=== PATIENT | male | born 1970 | race Hispanic/Latino ===

== ENCOUNTER 2016-07-31 17:20 | Emergency (ER) | payer SELFPAY ==
[2016-07-31 17:21] VITALS: BMI 25.0
[2016-07-31 17:35] VITALS: TEMP 97.7; O2SAT 100
--- NOTE | 2016-07-31 17:53 | ED PDOC ---
Arrival/HPI - General Chief Complaint: Trauma Time Seen by Provider: 07/31/16 17:31 Historian: Patient - History of Present Illness Narrative History of Present Illness (Text): 07/31/16 17:44 A 46 year old male presents to the emergency room status post a mechanical trip/ fall prior to arrival. Patient reports head and neck pain. Contrary to triage report, patient denies numbness. Patient notes parasthesia to bilateral hands. Patient denies dizziness, chest pain, shortness of breath, nausea, vomiting, diarrhea, or any other complaints. Time/Duration: Prior to Arrival Symptom Onset: Sudden Symptom Course: Unchanged Activities at Onset: Light Context: Walking, Street Past Medical History - Provider Review Nursing Documentation Reviewed: Yes - Past History Past History: No Previous - Infectious Disease Hx of Infectious Diseases: None - Tetanus Immunization Tetanus Immunization: Up to Date - Past Medical History Past Medical History: No Previous - Cardiac Hx Cardiac Disorders: No - Pulmonary Hx Respiratory Disorders: No - Neurological Hx Neurological Disorder: No - HEENT Hx HEENT Disorder: No - Renal Hx Renal Disorder: No - Endocrine/Metabolic Hx Endocrine Disorders: No - Hematological/Oncological Hx Blood Disorders: No - Integumentary Hx Dermatological Disorder: No - Musculoskeletal/Rheumatological Hx Musculoskeletal Disorders: No - Gastrointestinal Hx Gastrointestinal Disorders: Yes Other/Comment: GI parasites - Genitourinary/Gynecological Hx Genitourinary Disorders: No - Psychiatric Hx Depression: No Hx Substance Use: No - Past Surgical History Past Surgical History: No Previous - Surgical History Other/Comment: testicular - Anesthesia Hx Anesthesia: Yes Hx Anesthesia Reactions: No Hx Malignant Hyperthermia: No - Suicidal Assessment Feels Threatened In Home Enviroment: No Family/Social History - Physician Review Nursing Documentation Reviewed: Yes Family/Social History: No Known Family HX Smoking Status: Light Smoker < 10 Cigarettes Daily Hx Alcohol Use: Yes Hx Substance Use: No Hx Substance Use Treatment: No Allergies/Home Meds Allergies/Adverse Reactions: Allergies No Known Allergies Allergy (Verified 07/31/16 17:35) Physical Exam - Physical Exam Narrative Physical Exam (Text): 07/31/16 17:53 - Review of Systems Constitutional: Normal. absent: Fatigue, Weight Change, Fevers Eyes: Normal ENT: Normal Respiratory: Normal absent: SOB, Cough, Sputum Cardiovascular: Normal absent: Chest pain, Palpitations, Syncope Gastrointestinal: Normal absent: Abdominal pain, Diarrhea, Nausea, Vomiting Genitourinary: Normal. absent: Dysuria, Frequency, Hematuria Musculoskeletal: Head and Neck Pain absent: Arthralgias, Back Pain Skin: Normal Neurological: Parasthesia of the bilateral hands absent: Focal Weakness Endocrine: Normal Hemo/Lymphatic: Normal Psychiatric: Normal - Physical exam Patient appears age appropriate, speaking full sentences without difficulty Head atraumatic. No nasal bone deformity or tenderness, no facial or jaw pain/ swelling. No neck midline tenderness, thoracic and lumbar spine with no midline tenderness. Pt moving b/l upper and lower extremities without difficulty, 5/5 strength, with full active and passive ROM. Distal neurovasc fully intact. Abd soft/nt/ng, no hematomas, no peritoneal signs. Neg. pelvic rock. - Systems Exam Head: Present: Atraumatic, Normocephalic Pupils: Present: PERRL Extraocular Muscles: Present: EOMI Conjunctiva: Present: Normal Mouth: Present: Moist Mucous Membranes Neck: Present: Normal Range of Motion. No: MIDLINE TENDERNESS, Paraspinal Tenderness Respiratory/Chest: Present: Clear to Auscultation, Good Air Exchange. No: Respiratory Distress, Accessory Muscle Use, Tachypneic Cardiovascular: Present: Regular Rate and Rhythm, Normal S1, S2, Peripheral Pulses Present. No: Murmurs Abdomen: Present: Normal Bowel Sounds, No: Tenderness, Peritoneal Signs, Rebound, Guarding, Distention Back: Present: Normal Inspection. No: Midline Tenderness, Paraspinal Tenderness Upper Extremity: Present: Normal Inspection. No: Cyanosis, Edema Lower Extremity: Present: Normal Inspection. No: Edema Neurological: Present: GCS=15, Speech Normal, cranial nerves II through XII fully intact with no cerebellar abnormality, neuro-sensory fully intact. No focal neurological deficits. Skin: Present: Warm, Dry, Normal Color. No: Rashes Lymphatic: Present: OX3, NI, NC Psychiatric: Present: Alert, Oriented x 3, Normal Insight, Normal Concentration Vital Signs Reviewed: Yes Vital Signs Temp Pulse Resp BP Pulse Ox 07/31/16 17:21 97.7 F 85 20 174/97 H 100 Temperature: Afebrile Blood Pressure: Hypertensive Pulse: Regular Respiratory Rate: Normal Appearance: Positive for: Well-Appearing, Non-Toxic, Comfortable Pain Distress: None Mental Status: Positive for: Alert and Oriented X 3 Medical Decision Making ED Course and Treatment: 07/31/16 17:54 Impression: A 46 year old male with head and neck pain status post a mechanical fall. States that he tripped and fell on a curb. No acute findings on examination. Patient is complaining of bilateral upper extremity paresthesias, but he has no focal neurological deficits on examination, and has full neurosensory intact to his upper and lower extremities. Differential Diagnosis included but are not limited to: Sprain versus strain Plan: -- Cervical Spine CT -- Head CT -- Reassess and disposition Progress Notes: 07/31/16 19:50 CT Scan CERVICAL SPINE W/O CONTRAST Exam Date: 07/31/16 This imaging exam was performed at [facility] EXAM: CT Cervical Spine Without Intravenous Contrast CLINICAL HISTORY: 46 years old, male; Injury or trauma; Fall; Initial encounter; Blunt trauma EXAM DATE/TIME: 07/31/2016 5:46 PM COMPARISON: No relevant prior studies available. FINDINGS: VERTEBRAE: No acute cervical spine fractures visualized. No evidence of significant vertebral subluxation. Normal alignment of C1 and C2 and of the facet joints. DISCS/SPINAL CANAL/NEURAL FORAMINA: Mild to moderate multilevel degenerative disc disease, greatest at the C3-4 level. Mild, multilevel facet joint degenerative changes. SOFT TISSUES: No acute abnormality of the visualized soft tissues is seen. LUNG APICES: Mild emphysematous changes in the lung apices. No pneumothorax is seen. IMPRESSION: - No acute cervical spine fractures identified. - See above for remaining findings. Dictated By: Geno Bailon MD EXAM DATE/TIME: 07/31/2016 5:42 PM COMPARISON: No relevant prior studies available. FINDINGS: LIMITATIONS: Exam is limited by mild to moderate streak/motion artifact. BRAIN: Diffuse, mild, age-related cortical atrophy and ventriculomegaly. No significant acute abnormality identified. No acute hemorrhage seen within the brain. No acute extra-axial fluid collections visualized. No evidence of significant mass effect within the brain. VENTRICLES: See above. BONES/JOINTS: No acute fractures or other acute bony abnormality noted. SOFT TISSUES: No acute abnormality of the visualized soft tissues is seen. SINUSES: Visualized paranasal sinuses appear clear. MASTOID AIR CELLS: Mastoid air cells appear clear. IMPRESSION: - No evidence of acute intracranial injury or fractures, allowing for motion artifact. - See above for remaining findings. Dictated By: Geno Bailon MD 07/31/16 20:12 Patient ambulating around the emergency department in no distress. States that he feels comfortable being discharged home with outpatient follow-up. Patient has been informed of his CAT scan findings and instructed to follow up with the primary physician for further workup. Patient has no paresthesias, no numbness, no neurological deficits or complaints on discharge. Pt states he understands to return to the ER right away for new or worsening symptoms or for inability to f/u with PMD or specialist as instructed. Patient states that he fully agrees with and understands discharge instructions. States that he agrees with the plan and disposition. Verbalized and repeated discharge instructions and plan. I have given the patient opportunity to ask any additional questions. 07/31/16 20:32 before leaving, pt asked for a shot for pain - RAD Interpretation Radiology Orders: 07/31/16 17:42 HEAD W/O CONTRAST [CT] Stat 07/31/16 17:46 CERVICAL SPINE W/O CONTRAST [CT] Stat - Medication Orders Current Medication Orders: Discontinued Medications Acetaminophen (Tylenol 325mg Tab) 975 mg PO STAT STA Stop: 07/31/16 19:27 Last Admin: 07/31/16 19:40 Dose: 975 mg - Scribe Statement The provider has reviewed the documentation as recorded by the Chris Murrell Provider Scribe Attestation: All medical record entries made by the Angelibjayla were at my direction and personally dictated by me. I have reviewed the chart and agree that the record accurately reflects my personal performance of the history, physical exam, medical decision making, and the department course for this patient. I have also personally directed, reviewed, and agree with the discharge instructions and disposition. Disposition/Present on Arrival - Present on Arrival Any Indicators Present on Arrival: No History of DVT/PE: No History of Uncontrolled Diabetes: No Urinary Catheter: No History of Decub. Ulcer: No History Surgical Site Infection Following: None - Disposition Have Diagnosis and Disposition been Completed?: Yes Diagnosis: Fall Disposition: HOME/ ROUTINE Disposition Time: 20:13 Patient Plan: Discharge Patient Problems: Current Active Problems Problem Status Onset Fall Acute Condition: GOOD Discharge Instructions (ExitCare): Cervical Strain (GEN), Fall Prevention (ED) , Head Injury (ED) Additional Instructions: PLEASE RETURN TO THE EMERGENCY DEPARTMENT FOR NEW OR WORSENING SYMPTOMS. RETURN RIGHT AWAY IF YOU CANNOT FOLLOW UP WITH YOUR PRIMARY CARE DOCTOR, CLINIC, OR SPECIALIST IN 1-2 DAYS. Prescriptions: Ibuprofen [Motrin] 600 mg PO Q8 PRN #12 tab PRN Reason: Pain, Moderate (4-7) Referrals: Naatliia Mercer MD [Staff Provider] - Follow up with primary Hawk Donovan DO [Staff Provider] - Follow up with primary
--- NOTE | 2016-07-31 19:25 | CT ---
EXAM: CT Cervical Spine Without Intravenous Contrast CLINICAL HISTORY: 46 years old, male; Injury or trauma; Fall; Initial encounter; Blunt trauma TECHNIQUE: Axial computed tomography images of the cervical spine without intravenous contrast. This CT exam was performed using one or more of the following dose reduction techniques: automated exposure control, adjustment of the mA and/or kV according to patient size, and/or use of iterative reconstruction technique. Coronal and sagittal reformatted images were created and reviewed. EXAM DATE/TIME: 07/31/2016 5:46 PM COMPARISON: No relevant prior studies available. FINDINGS: VERTEBRAE: No acute cervical spine fractures visualized. No evidence of significant vertebral subluxation. Normal alignment of C1 and C2 and of the facet joints. DISCS/SPINAL CANAL/NEURAL FORAMINA: Mild to moderate multilevel degenerative disc disease, greatest at the C3-4 level. Mild, multilevel facet joint degenerative changes. SOFT TISSUES: No acute abnormality of the visualized soft tissues is seen. LUNG APICES: Mild emphysematous changes in the lung apices. No pneumothorax is seen. IMPRESSION: - No acute cervical spine fractures identified. - See above for remaining findings.
--- NOTE | 2016-07-31 19:34 | CT ---
EXAM: CT Head Without Intravenous Contrast CLINICAL HISTORY: 46 years old, male; Injury or trauma; Fall; Initial encounter; Blunt trauma (contusions or hematomas); Consciousness not specified TECHNIQUE: Axial computed tomography images of the head/brain without intravenous contrast. This CT exam was performed using one or more of the following dose reduction techniques: automated exposure control, adjustment of the mA and/or kV according to patient size, and/or use of iterative reconstruction technique. EXAM DATE/TIME: 07/31/2016 5:42 PM COMPARISON: No relevant prior studies available. FINDINGS: LIMITATIONS: Exam is limited by mild to moderate streak/motion artifact. BRAIN: Diffuse, mild, age-related cortical atrophy and ventriculomegaly. No significant acute abnormality identified. No acute hemorrhage seen within the brain. No acute extra-axial fluid collections visualized. No evidence of significant mass effect within the brain. VENTRICLES: See above. BONES/JOINTS: No acute fractures or other acute bony abnormality noted. SOFT TISSUES: No acute abnormality of the visualized soft tissues is seen. SINUSES: Visualized paranasal sinuses appear clear. MASTOID AIR CELLS: Mastoid air cells appear clear. IMPRESSION: - No evidence of acute intracranial injury or fractures, allowing for motion artifact. - See above for remaining findings.
[2016-07-31 22:34] VITALS: BP 162/80; PULSE 82; RESP 16
== END 2016-07-31 20:29 | disposition home or self-care (01) ==
LOC: ED 17:20
DX: Z04.8 Encounter for examination and observation for other specified reasons (principal); W01.0XXA Fall on same level from slipping, tripping and stumbling without subsequent striking against object, initial encounter; Y93.01 Activity, walking, marching and hiking; Y92.410 Unspecified street and highway as the place of occurrence of the external cause
CPT/HCPCS: 70450; 72125; 96372; 99285; J1885

== ENCOUNTER 2016-08-01 13:59 | Emergency (ER) | payer SELFPAY ==
[2016-08-01 14:12] VITALS: RESP 18
[2016-08-01 14:15] VITALS: BMI 23.6
[2016-08-01 14:16] VITALS: TEMP 98.7
--- NOTE | 2016-08-01 14:57 | ED PDOC ---
Arrival/HPI - General Chief Complaint: Back Pain Time Seen by Provider: 08/01/16 14:12 Historian: Patient - History of Present Illness Narrative History of Present Illness (Text): 08/01/16 14:41 Figueroa Piedra is a 46 year old male who presents to the emergency department with neck pain and tingling/numbness to all extremities today. 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 Only mildly in his toes. Patient was seen in the emergency department yesterday for the same symptoms after sustaining an injury where he fell forward, possibly hitting his head but patient is not sure. Patient denies any fever, chills, chest pain, shortness of breath, nausea, vomiting, diarrhea, urinary symptoms, back pain, dizziness, or any other complaints. PMD: None Time/Duration: < week (1-2 days) Symptom Onset: Gradual Symptom Course: Unchanged Activities at Onset: Light Context: Slipped Past Medical History - Provider Review Nursing Documentation Reviewed: Yes - Past History Past History: No Previous - Infectious Disease Hx of Infectious Diseases: None - Tetanus Immunization Tetanus Immunization: Up to Date - Past Medical History Past Medical History: No Previous - Cardiac Hx Cardiac Disorders: No - Pulmonary Hx Respiratory Disorders: No - Neurological Hx Neurological Disorder: No - HEENT Hx HEENT Disorder: No - Renal Hx Renal Disorder: No - Endocrine/Metabolic Hx Endocrine Disorders: No - Hematological/Oncological Hx Blood Disorders: No - Integumentary Hx Dermatological Disorder: No - Musculoskeletal/Rheumatological Hx Musculoskeletal Disorders: No - Gastrointestinal Hx Gastrointestinal Disorders: Yes Other/Comment: GI parasites - Genitourinary/Gynecological Hx Genitourinary Disorders: No - Psychiatric Hx Depression: No Hx Substance Use: No - Past Surgical History Past Surgical History: No Previous - Surgical History Other/Comment: testicular - Anesthesia Hx Anesthesia: Yes Hx Anesthesia Reactions: No Hx Malignant Hyperthermia: No - Suicidal Assessment Feels Threatened In Home Enviroment: No Family/Social History - Physician Review Nursing Documentation Reviewed: Yes Family/Social History: No Known Family HX Smoking Status: Heavy Smoker > 10 Cigarettes Daily Hx Alcohol Use: Yes Frequency of alcohol use: Socially Hx Substance Use: No Hx Substance Use Treatment: No Allergies/Home Meds Allergies/Adverse Reactions: Allergies No Known Allergies Allergy (Verified 07/31/16 17:35) Review of Systems - Physician Review All systems were reviewed & negative as marked: Yes - Review of Systems Constitutional: Normal. absent: Fevers Eyes: Normal. absent: Vision Changes, Photophobia, Eye Pain ENT: Normal. absent: Hearing Changes Respiratory: Normal. absent: SOB, Cough Cardiovascular: Normal. absent: Chest Pain Gastrointestinal: Normal. absent: Abdominal Pain, Diarrhea, Nausea, Vomiting Genitourinary Male: Normal Musculoskeletal: Neck Pain, Other (Tingling/Numbness to all extremities). absent: Back Pain Skin: Normal Neurological: Headache. absent: Dizziness Endocrine: Normal Hemo/Lymphatic: Normal Psychiatric: Normal Physical Exam Vital Signs Reviewed: Yes Vital Signs Temp Pulse Resp BP Pulse Ox 08/01/16 14:15 98.7 F 86 18 154/84 H 99 08/01/16 14:11 98.2 F 94 H 18 158/64 H 99 Temperature: Afebrile Blood Pressure: Hypertensive Pulse: Tachycardic Respiratory Rate: Normal Appearance: Positive for: Well-Appearing, Non-Toxic, Comfortable Pain Distress: None Mental Status: Positive for: Alert and Oriented X 3 - Systems Exam Head: Present: Atraumatic, Normocephalic Pupils: Present: PERRL Extroacular Muscles: Present: EOMI Conjunctiva: Present: Normal Mouth: Present: Moist Mucous Membranes Nose (External): Present: Atraumatic Nose (Internal): Present: Normal Inspection Neck: Present: Normal Range of Motion, MIDLINE TENDERNESS (tenderness at the base of occiput midline and tender around the dermatome up to his ears b/l). No : Paraspinal Tenderness Respiratory/Chest: Present: Clear to Auscultation, Good Air Exchange. No: Respiratory Distress Cardiovascular: Present: Regular Rate and Rhythm, Normal S1, S2 Abdomen: Present: Normal Bowel Sounds. No: Tenderness, Distention Upper Extremity: Present: Normal Inspection, Normal ROM, NORMAL PULSES. No: Cyanosis, Edema, Tenderness, Swelling Lower Extremity: Present: Normal Inspection, NORMAL PULSES, Normal ROM. No: Tenderness, Swelling Neurological: Present: GCS=15, CN II-XII Intact, Speech Normal, Motor Func Grossly Intact, Normal Sensory Function, Norm Deep Tendon Reflexes, Gait Normal , Memory Normal, Other (Not a good finger to nose exam b/l) Skin: Present: Warm Psychiatric: Present: Alert, Oriented x 3, Normal Insight, Normal Concentration Medical Decision Making ED Course and Treatment: 08/01/16 14:41 Impression: 46 year old male who presents complaining of numbness/tingling to the extremities and neck after a fall. Differential Diagnosis include but are not limited to: Neck pain r/o disk herniation vs. neck strain radiculopathy secondary to injury. Plan: -- Spinal Canal Cervical MRI -- Labs -- Toradol -- Reassess and disposition Prior Visits: Notes and results from previous visits were reviewed. Patient was last seen in the emergency department on 07/31/16 for the same symtpoms patient presents for today. Cervical Spine CT showed no acute cervical spine fractures identified. Head CT showed no evidence of acute intracranial injury or fractures, allowing for motion artifact. Progress Notes: 08/01/16 19:07 Case discussed with Radiologist Dr. Galloway. MRI Cervical without contrast. Impression: Multilevel degenerative spondylosis as described with varying degrees of canal narrowing cord compression and bilateral foraminal stenosis. Elliptical shaped area of increased T2 signal within the spinal cord of uncertain etiology however differential diagnosis would include acute posttraumatic edema or ischemia. Gliosis related to old trauma cannot be excluded. This lesion is not felt to represent tumor however recommend followup post-contrast Rabines is at approximately 6:50 p.m. with written down and read back verification. Neurosurgery paged and pending call back. 08/01/16 19:[address] Dalal who states to place him in a soft collar and get a flex ex imagining study. If negative for instability then he can follow up with his office this week. He should call and make an appointment. I discussed this with Dr. Heck who I signed out to f/u imaging and reevaluate. - Lab Interpretations Lab Results: 08/01/16 15:10 08/01/16 15:10 Lab Results 08/01/16 15:10: Sodium 138, Potassium 4.3, Chloride 99, Carbon Dioxide 28, Anion Gap 15, BUN 13, Creatinine 0.8, Est GFR ( Amer) > 60, Est GFR (Non- Af Amer) > 60, Random Glucose 109, Calcium 9.6 08/01/16 15:10: PT 11.4, INR 1.06, APTT 28.0 08/01/16 15:10: WBC 12.4 H D, RBC 4.64, Hgb 14.5, Hct 40.9 L, MCV 88.1, MCH 31.3 , MCHC 35.5, RDW 13.2, Plt Count 378, MPV 9.5, Gran % 78.0 H, Lymph % (Auto) 13.3 L, Mcdonald % (Auto) 8.2 H, Eos % (Auto) 0.3 L, Baso % (Auto) 0.2, Gran # 9.65 H, Lymph # 1.7, Mcdonald # 1.0 H, Eos # 0.0, Baso # 0.03 - RAD Interpretation Radiology Orders: 08/01/16 14:41 SPINAL CANAL CERVICAL W/O CONT [MRI] 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 I have reviewed the chart and agree that the record accurately reflects my personal performance of the history, physical exam, medical decision making, and the department course for this patient. I have also personally directed, reviewed, and agree with the discharge instructions and disposition. Disposition/Present on Arrival - Present on Arrival Any Indicators Present on Arrival: No History of DVT/PE: No History of Uncontrolled Diabetes: No Urinary Catheter: No History of Decub. Ulcer: No History Surgical Site Infection Following: None - Disposition Have Diagnosis and Disposition been Completed?: Yes Diagnosis: Neck pain Disposition Time: 19:16 Condition: IMPROVED
[2016-08-01 15:27] LABS: ADD MANUAL DIFF? NO
[2016-08-01 15:36] LABS: BASO # 0.03 K/mm3 (0.0-2.0); BASO % 0.2 % (0.0-3.0); EOS % 0.3 % (1.5-5.0); GRAN # 9.65 (1.4-6.5); HEMATOCRIT 40.9 % (42.0-52.0); LYMPH # 1.7 (1.2-3.4); LYMPH % 13.3 % (22.0-35.0); MEAN CELL VOLUME 88.1 fL (80.0-105.0); MEAN CORPUSCULAR HEMOGLOBIN 31.3 pg (25.0-35.0); MEAN CORPUSCULAR HGB CONC 35.5 g/dl (31.0-37.0); MEAN PLATELET VOLUME 9.5 fl (7.0-11.0); MONO % 8.2 % (1.0-6.0); PLATELET COUNT 378 10^3/uL (120.0-450.0); RED CELL DISTRIBUTION WIDTH 13.2 % (11.5-14.5); WHITE BLOOD COUNT 12.4 10^3/ul (4.5-11.0)
[2016-08-01 15:43] LABS: BLOOD UREA NITROGEN 13 mg/dL (7-21); CALCIUM 9.6 mg/dL (8.4-10.5); CARBON DIOXIDE 28 mmol/L (21-33); CHLORIDE 99 mmol/L (98-107); GFR AFRICAN-AMERICAN > 60; GLUCOSE,RANDOM 109 mg/dL (70-110); POTASSIUM 4.3 mmol/L (3.6-5.0); SODIUM 138 mmol/L (132-148)
[2016-08-01 15:44] LABS: INR 1.06 (0.93-1.08)
--- NOTE | 2016-08-01 18:52 | MRI ---
MRI of the cervical spine dated 08/01/2016. History: Status post fall. The current study reveals no acute compression fractures no retropulsed fragments. Vertebral bodies exhibit relatively normal stature aside from minor on fish-mouth endplate deformities at several levels. There is mild reversal of the normal upper cervical lordosis however vertebral bodies otherwise exhibit normal alignment. 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 At the C2-C3 level, there is mild disc desiccation and minor posterior disc space narrowing. Small central and bilateral disc bulge ridge complex indents the ventral surface of the thecal sac and cord. Central canal is mildly narrowed. The facets do appear slightly overgrown. Exit foramina appear adequate. At the C3-C4 level, there is mild disc desiccation. Disc space heights relatively maintained. Minimal broad-based bulge of the posterior annulus contiguous with the mildly overgrown facet uncovertebral joints. . Facet joints are also hypertrophic of. The there is mild canal narrowing and cord compression with bilateral foraminal stenosis. At the C4-C5 level, there is mild age related disc desiccation. Disc space height is relatively maintained. Minimal central and bilateral disc bulge ridge complex. Facets are mildly hypertrophic. Central canal is adequate. Exit foramina appear narrowed. At the C5-C6 level, there is disc desiccation. Disc space height maintained. Small central and bilateral disc bulge ridge complex contiguous with mildly overgrown uncovertebral joints. Central canal is mildly narrowed. The facet joints also hypertrophic Exit foramina are stenotic bilaterally At the C6-C7 level, there is also disc desiccation. Disc space height maintained. Small central and bilateral disc bulge indents the ventral surface of the thecal sac without significant canal stenosis or cord compression. The exit foramina appear adequate. Note is made of a elliptical shaped area of increased T2 signal within the upper cervical spinal cord extending from approximately the tip of the odontoid to mid C2 level which measures approximately 18.5 mm cc x 4.6 mm AP extending. . This lesion is of uncertain etiology though could represent posttraumatic edema, ischemia or post traumatic gliosis from a more remote injury. The cord does not appear expanded. Post-contrast MRI however is could suggested to rule out underlying tumor which is not favored but cannot be completely excluded. Note made of a small subcutaneous within the midline in just to the right of midline at the T1-T2 level which could represent sebaceous cyst. Impression: Multilevel degenerative spondylosis as described with varying degrees of canal narrowing cord compression and bilateral foraminal stenosis. Elliptical shaped area of increased T2 signal within the spinal cord of uncertain etiology however differential diagnosis would include acute posttraumatic edema or ischemia. Gliosis related to old trauma cannot be excluded. This lesion is not felt to represent tumor however recommend followup post-contrast Rabines is at approximately 6:50 p.m. with written down and read back verification.
--- NOTE | 2016-08-01 21:03 | ED PDOC ---
Physical Exam Vital Signs Temp Pulse Resp BP Pulse Ox 08/01/16 14:15 98.7 F 86 18 154/84 H 99 08/01/16 14:11 98.2 F 94 H 18 158/64 H 99 Medical Decision Making ED Course and Treatment: 08/01/16 21:01 flexion extension of neck no acute abnormality will dc per plan to follow up with neurosx outpt - Lab Interpretations Lab Results: 08/01/16 15:10 08/01/16 15:10 Lab Results 08/01/16 15:10: Sodium 138, Potassium 4.3, Chloride 99, Carbon Dioxide 28, Anion Gap 15, BUN 13, Creatinine 0.8, Est GFR ( Amer) > 60, Est GFR (Non- Af Amer) > 60, Random Glucose 109, Calcium 9.6 08/01/16 15:10: PT 11.4, INR 1.06, APTT 28.0 08/01/16 15:10: WBC 12.4 H D, RBC 4.64, Hgb 14.5, Hct 40.9 L, MCV 88.1, MCH 31.3 , MCHC 35.5, RDW 13.2, Plt Count 378, MPV 9.5, Gran % 78.0 H, Lymph % (Auto) 13.3 L, Leake % (Auto) 8.2 H, Eos % (Auto) 0.3 L, Baso % (Auto) 0.2, Gran # 9.65 H, Lymph # 1.7, Leake # 1.0 H, Eos # 0.0, Baso # 0.03 - RAD Interpretation Radiology Orders: 08/01/16 14:41 SPINAL CANAL CERVICAL W/O CONT [MRI] Stat 08/01/16 19:15 CERVICAL SPINE COMP W/ F&E [RAD] Stat - Medication Orders Current Medication Orders: Discontinued Medications Ketorolac Tromethamine (Toradol) 60 mg IM STAT STA Stop: 08/01/16 14:33 Last Admin: 08/01/16 15:02 Dose: 60 mg Re-Assess: MARILOU Pain Assessment Document 08/01/16 16:02 EQ (Rec: 08/01/16 20:10 EQ [facility] [id number]) Pain Reassessment Is this a pain reassessment? Yes Sleep Is patient sleeping during reassessment? No Presence of Pain Presence of Pain Yes Morphine Sulfate (Morphine) 6 mg IM STAT STA Stop: 08/01/16 18:31 Last Admin: 08/01/16 19:10 Dose: 6 mg Disposition/Present on Arrival - Present on Arrival Any Indicators Present on Arrival: No History of DVT/PE: No History of Uncontrolled Diabetes: No Urinary Catheter: No History of Decub. Ulcer: No History Surgical Site Infection Following: None - Disposition Have Diagnosis and Disposition been Completed?: Yes Diagnosis: Neck pain Disposition: HOME/ ROUTINE Disposition Time: 21:02 Condition: GOOD Discharge Instructions (ExitCare): Cervical Sprain (ED), Cervical Radiculopathy (ED) Referrals: PCP,NO [Primary Care Provider] - Follow up with primary Ruel Dalal MD [Staff Provider] - Follow up with primary
[2016-08-01] MEDS ORDERED: Sodium Chloride 0.9% 1,000 ML IV SCH (21:30)
[2016-08-01] MEDS ORDERED: Morphine 2 mg/ml ISec IVP STA (23:24)
[2016-08-02 00:01] VITALS: BP 139/83; PULSE 87; O2SAT 97
--- NOTE | 2016-08-02 10:34 | RAD ---
PROCEDURE: Cervical Spine Radiographs. Multiple views of the cervical spine including lateral neutral flexion and extension views performed. HISTORY: Pain. COMPARISON: None. FINDINGS: BONES: No acute compression fractures nor retropulsed fragments. Vertebral bodies exhibit relatively normal stature. Very slight posterior subluxation C2 over C3 through C5 over C6. . There is widening of the AP distance of the at atlantodental interval ranging between 5.47- 7.49 mm ; findings consistent with instability at the C1-C2 level. DISC SPACES: Mild the disc space narrowing more so along the posterior disc margins with endplate eburnation and anterior osteophyte formation. SOFT TISSUES: Normal. No prevertebral soft tissue swelling. OTHER FINDINGS: None. IMPRESSION: No acute fractures. Very slight posterior subluxation C2 over C3 through C5 over C6. . There is widening of the AP distance of the at atlantodental interval ranging between 4.8- 6.7 mm ; findings consistent with instability at the C1-C2 level. Neurosurgical consultation is suggested. These findings were discussed with Dr. Lee at approximately 10:30 a.m. with written down and read back verification. Mild multilevel degenerative spondylosis Note also that this report was placed in PA review folder for followup
== END 2016-08-02 | disposition home or self-care (01) ==
LOC: ED 13:59
DX: M54.2 Cervicalgia (principal)
CPT/HCPCS: 72052; 72141; 80048; 85025; 85610; 85730; 96372; 96374; 99283; J1885; J2270; J7040

== ENCOUNTER 2016-09-13 22:17 | Emergency (ER) | payer SELFPAY ==
[2016-09-13 23:13] VITALS: BMI 22.8
[2016-09-13 23:22] VITALS: BP 147/98; PULSE 85; RESP 16; TEMP 100.5; O2SAT 98
[2016-09-13] MEDS ORDERED: Morphine 4 mg/ml ISec IVP STA (23:35)
[2016-09-14] MEDS: cefTRIAXone 1 gm 1 GM/100 ML BAG IVPB STA ×2 (00:03→00:38)
[2016-09-14 00:12] LABS: HEMATOCRIT 37.8 % (42.0-52.0); MEAN CELL VOLUME 90.9 fL (80.0-105.0); MEAN CORPUSCULAR HEMOGLOBIN 31.5 pg (25.0-35.0); MEAN CORPUSCULAR HGB CONC 34.7 g/dl (31.0-37.0); MEAN PLATELET VOLUME 9.1 fl (7.0-11.0); PLATELET COUNT 350 10^3/uL (120.0-450.0); RED CELL DISTRIBUTION WIDTH 12.8 % (11.5-14.5); WHITE BLOOD COUNT 20.5 10^3/ul (4.5-11.0)
--- NOTE | 2016-09-14 00:12 | ED PDOC ---
Arrival/HPI - General Chief Complaint: Dental Pain Time Seen by Provider: 09/13/16 23:09 Historian: Patient - History of Present Illness Narrative History of Present Illness (Text): 09/14/16 00:03 46yo male with history of multiple visit to ED for dental pain, present with 2days history of worsening right sided upper and lower toothache with facial swelling. States swelling became worse today. Per patient, pain is throbbing and it "feels like my face is about to explode". He states he saw a Dentist in the past, but couldn't see a dentist now, because have no insurance. He denies fever, although he was febrile on presentation. He denies drooling, SOB, neck pain, trauma, any other complaint. Past Medical History - Provider Review Nursing Documentation Reviewed: Yes - Past History Past History: No Previous - Infectious Disease Hx of Infectious Diseases: None - Tetanus Immunization Tetanus Immunization: Up to Date - Past Medical History Past Medical History: No Previous - Cardiac Hx Cardiac Disorders: No - Pulmonary Hx Respiratory Disorders: No - Neurological Hx Neurological Disorder: No - HEENT Hx HEENT Disorder: No - Renal Hx Renal Disorder: No - Endocrine/Metabolic Hx Endocrine Disorders: No - Hematological/Oncological Hx Blood Disorders: No - Integumentary Hx Dermatological Disorder: No - Musculoskeletal/Rheumatological Hx Musculoskeletal Disorders: No - Gastrointestinal Hx Gastrointestinal Disorders: Yes Other/Comment: GI parasites - Genitourinary/Gynecological Hx Genitourinary Disorders: No - Psychiatric Hx Depression: No Hx Substance Use: No - Past Surgical History Past Surgical History: No Previous - Surgical History Other/Comment: testicular - Anesthesia Hx Anesthesia: Yes Hx Anesthesia Reactions: No Hx Malignant Hyperthermia: No - Suicidal Assessment Feels Threatened In Home Enviroment: No Family/Social History - Physician Review Nursing Documentation Reviewed: Yes Family/Social History: Unknown Family HX Smoking Status: Heavy Smoker > 10 Cigarettes Daily Hx Alcohol Use: Yes Hx Substance Use: No Hx Substance Use Treatment: No Allergies/Home Meds Allergies/Adverse Reactions: Allergies No Known Allergies Allergy (Verified 09/13/16 23:14) Review of Systems - Physician Review All systems were reviewed & negative as marked: Yes - Review of Systems Constitutional: Normal Eyes: Normal ENT: Other (DEntal pain) Respiratory: Normal Cardiovascular: Normal Gastrointestinal: Normal Genitourinary Male: Normal Musculoskeletal: Normal Skin: Normal Neurological: Normal Endocrine: Normal Hemo/Lymphatic: Normal Psychiatric: Normal Physical Exam Vital Signs Reviewed: Yes Vital Signs Temp Pulse Resp BP Pulse Ox 09/13/16 23:22 100.5 F H 85 16 147/98 H 98 Temperature: Febrile Blood Pressure: Normal Pulse: Regular Respiratory Rate: Normal Appearance: Positive for: Well-Appearing, Non-Toxic, Comfortable Pain Distress: Moderate Mental Status: Positive for: Alert and Oriented X 3 - Systems Exam Head: Present: Atraumatic, Normocephalic Pupils: Present: PERRL Extroacular Muscles: Present: EOMI Conjunctiva: Present: Normal Mouth: Present: Moist Mucous Membranes, Trismus, Other (Prominent swelling of right sided jaw noted. TTP). No: Normal Teeth (Unable to ascess , pt unable to open mouth secondary to pain) Neck: Present: Normal Range of Motion Respiratory/Chest: Present: Clear to Auscultation, Good Air Exchange. No: Respiratory Distress, Accessory Muscle Use Cardiovascular: Present: Regular Rate and Rhythm, Normal S1, S2. No: Murmurs Abdomen: Present: Normal Bowel Sounds. No: Tenderness, Distention, Peritoneal Signs Back: Present: Normal Inspection Upper Extremity: Present: Normal Inspection. No: Cyanosis, Edema Lower Extremity: Present: Normal Inspection. No: Edema Neurological: Present: GCS=15, CN II-XII Intact, Speech Normal Skin: Present: Warm, Dry, Normal Color. No: Rashes Psychiatric: Present: Alert, Oriented x 3, Normal Insight, Normal Concentration Medical Decision Making ED Course and Treatment: 09/14/16 00:[address] Alexander, LILIANA at [facility] and she accepted pt for transfer to [facility]. Pt was febrile in ED and physically in pain. He have prominent swelling of his right sided jaw. Lab was ordered Rocephin and morphine was ordered The plan to transfer pt to [facility] was DW the pt and he agreed. 09/14/16 01:22 Patient requested for more pain medication while in ED and his pain was controlled with addition of Dilaudid after morphine. He then declined transfer. States he will go and see his own Dentist. This was after he agreed to the plan of transfer even before i spoke with the OMFS at [facility]. I stressed the importance of him seeing a Dentist/OMFS secondary to his significant facial swelling, leukocytoisis and fever. The risk of sepsis and possible was DW the pt. He states he understood these risk , but still insisted on leaving AMA. - Lab Interpretations Lab Results: 09/13/16 23:55 09/13/16 23:55 Lab Results 09/13/16 23:55: Sodium 135, Potassium 3.9, Chloride 97 L, Carbon Dioxide 29, Anion Gap 13, BUN 9, Creatinine 0.8, Est GFR ( Amer) > 60, Est GFR (Non- Af Amer) > 60, Random Glucose 102, Calcium 9.5, Total Bilirubin 0.8, AST 25, ALT 27, Alkaline Phosphatase 78, Total Protein 7.7, Albumin 4.2, Globulin 3.5, Albumin/Globulin Ratio 1.2 09/13/16 23:55: WBC 20.5 H D, RBC 4.16, Hgb 13.1 L, Hct 37.8 L, MCV 90.9, MCH 31.5, MCHC 34.7, RDW 12.8, Plt Count 350, MPV 9.1, Neutrophils % (Manual) 73 H, Band Neutrophils % 3 H, Lymphocytes % (Manual) 18 L, Monocytes % (Manual) 5, Eosinophils % (Manual) 1, Platelet Evaluation Normal - Medication Orders Current Medication Orders: Discontinued Medications Hydromorphone HCl (Dilaudid) 1 mg IVP STAT STA Stop: 09/14/16 00:25 Last Admin: 09/14/16 00:38 Dose: 1 mg Ceftriaxone Sodium (Rocephin 1 Gram Ivpb) 1 gm in 100 mls @ 200 mls/hr IVPB STAT STA PRN Reason: Protocol Stop: 09/14/16 00:03 Last Admin: 09/14/16 00:38 Dose: 200 mls/hr Morphine Sulfate (Morphine) 4 mg IVP STAT STA Stop: 09/13/16 23:36 Last Admin: 09/14/16 00:02 Dose: 4 mg Disposition/Present on Arrival - Present on Arrival Any Indicators Present on Arrival: No History of DVT/PE: No History of Uncontrolled Diabetes: No Urinary Catheter: No History of Decub. Ulcer: No History Surgical Site Infection Following: None - Disposition Have Diagnosis and Disposition been Completed?: Yes Diagnosis: Dental abscess, Leukocytosis Disposition: AGAINST MEDICAL ADVICE Disposition Time: 01:15 Patient Problems: Current Active Problems Problem Status Onset Dental abscess Acute Leukocytosis Acute Condition: FAIR Prescriptions: Amoxicillin 500 mg PO TID #21 tab Ibuprofen [Motrin Tab] 800 mg PO Q6 #20 tab Referrals: PCP,NO [Primary Care Provider] - Follow up with primary
[2016-09-14 00:15] LABS: ADD MANUAL DIFF? YES
[2016-09-14] MEDS ORDERED: HYDROmorphone 1 mg/ml ISec IVP STA (00:24)
[2016-09-14 00:30] LABS: ALB/GLOB RATIO 1.2 (1.1-1.8); ALKALINE PHOSPHATASE 78 U/L (38-133); ALT/SGPT 27 U/L (7-56); AST/SGOT 25 U/L (15-59); BILIRUBIN,TOTAL 0.8 mg/dL (0.2-1.3); BLOOD UREA NITROGEN 9 mg/dL (7-21); CALCIUM 9.5 mg/dL (8.4-10.5); CARBON DIOXIDE 29 mmol/L (21-33); CHLORIDE 97 mmol/L (98-107); GFR AFRICAN-AMERICAN > 60; GLUCOSE,RANDOM 102 mg/dL (70-110); POTASSIUM 3.9 mmol/L (3.6-5.0); SODIUM 135 mmol/L (132-148); TOTAL PROTEIN 7.7 g/dL (5.8-8.3)
[2016-09-14 01:01] LABS: BAND 3 % (0-2); EOSINOPHIL 1 % (0.0-3.0); NEUTROPHIL 73 % (50.0-70.0); PLATELET ESTIMATE NORMAL (NORMAL)
== END 2016-09-14 01:15 | disposition left against medical advice (07) ==
LOC: ED 22:17
DX: K04.7 Periapical abscess without sinus (principal); D72.829 Elevated white blood cell count, unspecified
CPT/HCPCS: 80053; 85025; 96365; 96375; 99284; J0696; J1170; J2270

== ENCOUNTER 2016-11-04 10:20 | Emergency (ER) | payer MEDICAID, OTHER ==
[2016-11-04 10:20] VITALS: BMI 22.8
[2016-11-04 10:47] VITALS: TEMP 98.8
--- NOTE | 2016-11-04 10:48 | ED PDOC ---
Arrival/HPI - General Chief Complaint: Abnormal Skin Integrity Time Seen by Provider: 11/04/16 10:47 Historian: Patient - History of Present Illness Narrative History of Present Illness (Text): 11/04/16 10:48 This 46 yo male presents to this ED c/o right facial abscess, and generalized insect bites x 7 days. Patient stated abscess became larger today with pain. Denies other complains. Time/Duration: 1 week Quality: Aching Context: Home Past Medical History - Provider Review Nursing Documentation Reviewed: Yes - Past History Past History: No Previous - Infectious Disease Hx of Infectious Diseases: None - Tetanus Immunization Tetanus Immunization: Up to Date - Past Medical History Past Medical History: No Previous - Cardiac Hx Cardiac Disorders: No - Pulmonary Hx Respiratory Disorders: No - Neurological Hx Neurological Disorder: No - HEENT Hx HEENT Disorder: No - Renal Hx Renal Disorder: No - Endocrine/Metabolic Hx Endocrine Disorders: No - Hematological/Oncological Hx Blood Disorders: No - Integumentary Hx Dermatological Disorder: No - Musculoskeletal/Rheumatological Hx Musculoskeletal Disorders: No - Gastrointestinal Hx Gastrointestinal Disorders: Yes Other/Comment: GI parasites - Genitourinary/Gynecological Hx Genitourinary Disorders: No - Psychiatric Hx Depression: No Hx Substance Use: No - Past Surgical History Past Surgical History: No Previous - Surgical History Other/Comment: testicular - Anesthesia Hx Anesthesia: Yes Hx Anesthesia Reactions: No Hx Malignant Hyperthermia: No - Suicidal Assessment Feels Threatened In Home Enviroment: No Family/Social History - Physician Review Nursing Documentation Reviewed: Yes Family/Social History: No Known Family HX Smoking Status: Heavy Smoker > 10 Cigarettes Daily Hx Alcohol Use: Yes Frequency of alcohol use: Socially Hx Substance Use: No Hx Substance Use Treatment: No Allergies/Home Meds Allergies/Adverse Reactions: Allergies No Known Allergies Allergy (Verified 11/04/16 10:29) Review of Systems - Review of Systems Constitutional: Normal. absent: Fatigue, Weight Change, Fevers, Night Sweats Eyes: Normal ENT: Normal Respiratory: Normal. absent: SOB, Cough, Sputum, Wheezing Cardiovascular: Normal. absent: Chest Pain, Palpitations Gastrointestinal: Normal. absent: Abdominal Pain, Nausea, Vomiting Genitourinary Male: Normal Musculoskeletal: Normal Skin: Rash, Abscess. absent: Pruritis, Skin Lesions Neurological: Normal. absent: Headache Endocrine: Normal Hemo/Lymphatic: Normal Psychiatric: Normal Physical Exam Vital Signs Temp Pulse Resp BP Pulse Ox 11/04/16 12:12 79 18 132/74 98 11/04/16 11:10 87 18 134/79 97 11/04/16 10:25 98.8 F 92 H 16 136/88 98 Temperature: Afebrile Blood Pressure: Normal Pulse: Regular Respiratory Rate: Normal Appearance: Positive for: Well-Appearing, Non-Toxic, Comfortable Pain Distress: None Mental Status: Positive for: Alert and Oriented X 3 - Systems Exam Head: Present: Atraumatic, Normocephalic, Other ((+) right facial abscess, approx. 3 cm. (+) multiple insect like wounds on his extremites, and 2 on the scalp.) Pupils: Present: PERRL Extroacular Muscles: Present: EOMI Conjunctiva: Present: Normal Mouth: Present: Moist Mucous Membranes Neck: Present: Normal Range of Motion. No: Meningeal Signs Respiratory/Chest: Present: Clear to Auscultation, Good Air Exchange. No: Respiratory Distress, Accessory Muscle Use Cardiovascular: Present: Regular Rate and Rhythm, Normal S1, S2. No: Murmurs Abdomen: Present: Normal Bowel Sounds. No: Tenderness, Distention, Peritoneal Signs Back: Present: Normal Inspection. No: CVA Tenderness Upper Extremity: Present: Normal Inspection, Normal ROM. No: Cyanosis, Edema Lower Extremity: Present: Normal Inspection, Normal ROM, Capillary Refill < 2 s. No: Edema Neurological: Present: GCS=15, CN II-XII Intact, Speech Normal Skin: Present: Warm, Dry, Normal Color. No: Rashes Psychiatric: Present: Alert, Oriented x 3 Medical Decision Making ED Course and Treatment: 11/04/16 12:45 Th Re-evaluation Time: 12:46 Reassessment Condition: Re-examined - Medication Orders Current Medication Orders: Discontinued Medications Amoxicillin/Clavulanate Potassium (Augmentin 875 Mg-125 Mg Tab) 1 tab PO STAT STA PRN Reason: Protocol Stop: 11/04/16 11:18 Last Admin: 11/04/16 11:31 Dose: 1 tab Ketorolac Tromethamine (Toradol) 30 mg IM STAT STA Stop: 11/04/16 11:03 Last Admin: 11/04/16 11:04 Dose: 30 mg Ketorolac Tromethamine (Toradol) Confirm Administered Dose 30 mg .ROUTE .STK- MED ONE Stop: 11/04/16 11:04 Last Admin: 11/04/16 11:05 Dose: Trimethoprim/Sulfamethoxazole (Bactrim Ds Tab) 1 tab PO STAT STA PRN Reason: Protocol Stop: 11/04/16 11:18 Last Admin: 11/04/16 11:31 Dose: 1 tab Disposition/Present on Arrival - Present on Arrival Any Indicators Present on Arrival: No History of DVT/PE: No History of Uncontrolled Diabetes: No Urinary Catheter: No History of Decub. Ulcer: No History Surgical Site Infection Following: None - Disposition Have Diagnosis and Disposition been Completed?: Yes Diagnosis: Facial abscess Disposition: HOME/ ROUTINE Disposition Time: 12:46 Patient Plan: Discharge Condition: GOOD Discharge Instructions (ExitCare): Abscess (ED) Additional Instructions: Keep wound clean and dry for 2 days. Return to emergency in 2 days for wound recheck. Take medication as instructed. Apply cream of the head twice a day for 1-2 weeks Prescriptions: Amoxicillin/Clavulanate [Augmentin 875 MG-125 MG] 1 tab PO BID #14 tab Clotrimazole 1% Cream [Lotrimin 1% CREAM] 1 applic TOP BID #1 tube Sulfamethoxazole/Trimethoprim [Bactrim DS 800 mg-160 mg] 1 tab PO BID #20 tab Referrals: PCP,NO [Primary Care Provider] - Follow up with primary [facility] [Outside] - Follow up with primary [facility] [Outside] - Follow up with primary Forms: [employer] (Lithuanian)
[2016-11-04 11:11] VITALS: RESP 18
[2016-11-04] MEDS ORDERED: Tmp-Smz 800 mg-160 mg DS Tab PO STA (11:17)
[2016-11-04] MEDS ORDERED: Amoxicillin-Clav 875-125 mg Tab PO STA (11:17)
[2016-11-04 12:12] VITALS: BP 132/74; PULSE 79; O2SAT 98
[2016-11-04] MEDS ORDERED: Clotrimazole 1% Cream(30 gm) TOP STA (12:43)
== END 2016-11-04 13:11 | disposition home or self-care (01) ==
LOC: ED 10:20
DX: L02.01 Cutaneous abscess of face (principal)
CPT/HCPCS: 87070; 96372; 99284; J1885

== ENCOUNTER 2017-07-19 04:18 | Emergency (ER) | payer MEDICAID ==
[2017-07-19 04:29] VITALS: BMI 25.0
[2017-07-19 04:37] VITALS: BP 192/110; PULSE 91; RESP 18; TEMP 98; O2SAT 98
[2017-07-19] MEDS ORDERED: Bacitracin 500 Units/gm Oint Foilpak UD TOP STA (04:41)
--- NOTE | 2017-07-19 04:47 | ED PDOC ---
Arrival/HPI - General Chief Complaint: Abnormal Skin Integrity Time Seen by Provider: 07/19/17 04:34 Historian: Patient - History of Present Illness Narrative History of Present Illness (Text): you were treated in the ED today for scalp itching and now with left scalp wound and long standing right shoulder and neck pain from lifting weights but otherwise without any /fall/injury/head injury/nausea/vomiting/headache/ dizziness/difficulty breathing/chest pain/abdomen pain/numbness/tingling/loss of limb or bowel or bladder function/pain with urination/new foods/travel/new detergents. Time/Duration: > month (1) Symptom Onset: Gradual Symptom Course: Intermittent Quality: Aching Severity Level: 1 Activities at Onset: Rest Context: Sitting Past Medical History - Provider Review Nursing Documentation Reviewed: Yes - Travel History Have you recently traveled outside [place] w/in the past 3 mons?: No - Past History Past History: No Previous - Infectious Disease Hx of Infectious Diseases: None - Tetanus Immunization Tetanus Immunization: Up to Date - Past Medical History Past Medical History: No Previous - Cardiac Hx Cardiac Disorders: No - Pulmonary Hx Respiratory Disorders: No - Neurological Hx Neurological Disorder: No - HEENT Hx HEENT Disorder: No - Renal Hx Renal Disorder: No - Endocrine/Metabolic Hx Endocrine Disorders: No - Hematological/Oncological Hx Blood Disorders: No - Integumentary Hx Dermatological Disorder: No - Musculoskeletal/Rheumatological Hx Musculoskeletal Disorders: No - Gastrointestinal Hx Gastrointestinal Disorders: Yes Other/Comment: GI parasites - Genitourinary/Gynecological Hx Genitourinary Disorders: No - Psychiatric Hx Depression: No Hx Substance Use: No - Past Surgical History Past Surgical History: No Previous - Surgical History Other/Comment: testicular - Anesthesia Hx Anesthesia: Yes Hx Anesthesia Reactions: No Hx Malignant Hyperthermia: No - Suicidal Assessment Feels Threatened In Home Enviroment: No Family/Social History - Physician Review Nursing Documentation Reviewed: Yes Family/Social History: No Known Family HX Smoking Status: Heavy Smoker > 10 Cigarettes Daily Hx Alcohol Use: Yes Hx Substance Use: No Hx Substance Use Treatment: No Allergies/Home Meds Allergies/Adverse Reactions: Allergies No Known Allergies Allergy (Verified 07/19/17 04:29) Review of Systems - Review of Systems Constitutional: Normal Eyes: Normal ENT: Normal Respiratory: Normal Cardiovascular: Normal Gastrointestinal: Normal Genitourinary Male: Normal Musculoskeletal: Arthralgias, Neck Pain Skin: Other (scalp wound) Neurological: Normal Endocrine: Normal Hemo/Lymphatic: Normal Psychiatric: Normal Physical Exam Vital Signs Reviewed: Yes Vital Signs Temp Pulse Resp BP Pulse Ox 07/19/17 04:37 98.0 F 91 H 18 192/110 H 98 Temperature: Afebrile Blood Pressure: Hypertensive Pulse: Regular Respiratory Rate: Normal Appearance: Positive for: Well-Appearing, Non-Toxic, Comfortable Pain Distress: None Mental Status: Positive for: Alert and Oriented X 3 - Systems Exam Head: Present: Atraumatic, Normocephalic, Other (left scalp wound with mild redness but no pocket of infection) Extroacular Muscles: Present: EOMI Conjunctiva: Present: Normal Ears: Present: Normal Mouth: Present: Moist Mucous Membranes Pharnyx: Present: Normal Nose (External): Present: Atraumatic Nose (Internal): Present: Normal Inspection Neck: Present: Normal Range of Motion, Other (no specific bony shoulder tenderness or spinal tenderness and with good pulses/warm extremities/pink) Respiratory/Chest: Present: Clear to Auscultation, Good Air Exchange Cardiovascular: Present: Regular Rate and Rhythm Abdomen: No: Tenderness, Distention, Normal Bowel Sounds, Peritoneal Signs, Rebound, Guarding, McBurney's Point Tender, Rovsing's Sign Present, Hernias, Feeding Tubes, Ostomy Tubes, Mass/Organomegaly, Scars, Other Back: Present: Normal Inspection Upper Extremity: Present: Normal Inspection Lower Extremity: Present: Normal Inspection Neurological: Present: GCS=15, CN II-XII Intact, Speech Normal, Motor Func Grossly Intact Skin: Present: Warm, Other (see heent) Psychiatric: Present: Alert, Oriented x 3, Normal Insight, Normal Concentration Medical Decision Making ED Course and Treatment: you were treated in the ED today for scalp itching and now with left scalp wound and long standing right shoulder and neck pain from lifting weights but otherwise without any /fall/injury/head injury/nausea/vomiting/headache/ dizziness/difficulty breathing/chest pain/abdomen pain/numbness/tingling/loss of limb or bowel or bladder function/pain with urination/new foods/travel/new detergents. You were otherwise breathing easily, pink moist lips, talking easily , good strength/sensation, alert/oriented, walking easily, clear lungs, no abdomen tenderness, left scalp wound with mild redness but no pocket of infection, and no specific bony shoulder tenderness or spinal tenderness and with good pulses/warm extremities/pink/good range of motion, no fever temp 98, stable heart rate 91, stable breathing rate 18, excellent oxygen level 98% room air, elevated blood pressure 192/110 which we recommend repeat in 2-3 days primary care office to determine further treatment, radiology ct cervical spine no fracture, right shoulder xray no acute, motrin, keflex, bacitracin, ointment done in the ED with improvement, counselled to allow water/soap on scalp wound daily and thus discharged home. 1. Recommend keflex as directed for wound infection treatment. recommend bacitracin ointment to wound daily. 2. Recommend motrin as directed for pain. 3. Recommend follow-up primary care 2 days to review symptoms, for wound check and for referral to spine clinic to review symptoms. 4. If any worsening pain, fever, chills, nausea, vomiting, difficulty breathing, numbness, loss of limb function, pain with urination or any medical condition then return to the ED. CT - CERVICAL SPINE W/O CONTRAST 2016-07-31 18:51 FINDINGS: Vertebrae: No acute fracture. Straightening of cervical spine. Early facet osteoarthrosis. Discs/spinal canal/neural foramina: Mild degenerative disc disease at C2-C3, C3- C4, C5-C6, C6-C7 levels. Mild indentation thecal sac/cord at C3-C4 level. Neuroforaminal narrowing at C3-C4 level. Soft tissues: Unremarkable. Lung apices: Mild bullous changes. IMPRESSION: 1. No fracture. 2. If symptoms persist, consider MRI for further evaluation. 3. Incidental/non-acute findings are described above. Reassessment Condition: Re-examined, Improved - RAD Interpretation Radiology Orders: 07/19/17 04:43 CERVICAL SPINE W/O CONTRAST [CT] Stat SHOULDER RIGHT [RAD] Stat Primary Care Physician: Radiologist (see mdm) - Medication Orders Current Medication Orders: Discontinued Medications Bacitracin (Bacitracin) 1 ea TOP STAT STA Stop: 07/19/17 04:42 Last Admin: 07/19/17 05:02 Dose: 1 ea Cephalexin Monohydrate (Keflex) 500 mg PO STAT STA PRN Reason: Protocol Stop: 07/19/17 04:43 Last Admin: 07/19/17 05:02 Dose: 500 mg Ibuprofen (Motrin Tab) 800 mg PO STAT STA Stop: 07/19/17 04:45 Last Admin: 07/19/17 05:01 Dose: 800 mg Disposition/Present on Arrival - Present on Arrival Any Indicators Present on Arrival: No History of DVT/PE: No History of Uncontrolled Diabetes: No Urinary Catheter: No History of Decub. Ulcer: No History Surgical Site Infection Following: None - Disposition Have Diagnosis and Disposition been Completed?: Yes Diagnosis: Cellulitis and abscess of head Disposition: HOME/ ROUTINE Disposition Time: 05:37 Patient Plan: Discharge Condition: IMPROVED Discharge Instructions (ExitCare): Cellulitis (ED) Additional Instructions: you were treated in the ED today for scalp itching and now with left scalp wound and long standing right shoulder and neck pain from lifting weights but otherwise without any /fall/injury/head injury/nausea/vomiting/headache/ dizziness/difficulty breathing/chest pain/abdomen pain/numbness/tingling/loss of limb or bowel or bladder function/pain with urination/new foods/travel/new detergents. You were otherwise breathing easily, pink moist lips, talking easily , good strength/sensation, alert/oriented, walking easily, clear lungs, no abdomen tenderness, left scalp wound with mild redness but no pocket of infection, and no specific bony shoulder tenderness or spinal tenderness and with good pulses/warm extremities/pink/good range of motion, no fever temp 98, stable heart rate 91, stable breathing rate 18, excellent oxygen level 98% room air, elevated blood pressure 192/110 which we recommend repeat in 2-3 days primary care office to determine further treatment, radiology ct cervical spine no fracture, right shoulder xray no acute, motrin, keflex, bacitracin, ointment done in the ED with improvement, counselled to allow water/soap on scalp wound daily and thus discharged home. 1. Recommend keflex as directed for wound infection treatment. recommend bacitracin ointment to wound daily. 2. Recommend motrin as directed for pain. 3. Recommend follow-up primary care 2 days to review symptoms, for wound check and for referral to spine clinic to review symptoms. 4. If any worsening pain, fever, chills, nausea, vomiting, difficulty breathing, numbness, loss of limb function, pain with urination or any medical condition then return to the ED. Prescriptions: Cephalexin [cephalexin] 500 mg PO Q8 7 Days #21 cap Forms: [employer] ([place])
--- NOTE | 2017-07-19 05:32 | CT ---
EXAM: CT Cervical Spine Without Intravenous Contrast CLINICAL HISTORY: 47 years old, male; Pain; Neck pain; Additional info: 47yom with radicular pain TECHNIQUE: Axial computed tomography images of the cervical spine without intravenous contrast. All CT scans at this facility use one or more dose reduction techniques, viz.: automated exposure control; ma/kV adjustment per patient size (including targeted exams where dose is matched to indication; i.e. head); or iterative reconstruction technique. Coronal and sagittal reformatted images were created and reviewed. COMPARISON: CT - CERVICAL SPINE W/O CONTRAST 2016-07-31 18:51 FINDINGS: Vertebrae: No acute fracture. Straightening of cervical spine. Early facet osteoarthrosis. Discs/spinal canal/neural foramina: Mild degenerative disc disease at C2-C3, C3-C4, C5-C6, C6-C7 levels. Mild indentation thecal sac/cord at C3-C4 level. Neuroforaminal narrowing at C3-C4 level. Soft tissues: Unremarkable. Lung apices: Mild bullous changes. IMPRESSION: 1. No fracture. 2. If symptoms persist, consider MRI for further evaluation. 3. Incidental/non-acute findings are described above.
--- NOTE | 2017-07-19 08:26 | RAD ---
PROCEDURE: Radiographs of the Right Shoulder HISTORY: 47yoM, with shoulder pain COMPARISON: No prior. FINDINGS: BONES: Bone alignment is normal. No acute fracture. JOINTS: There is mild degenerative osteoarthrosis in the glenohumeral and acromioclavicular joints. SOFT TISSUES: Normal. OTHER FINDINGS: None. IMPRESSION: No acute fracture or dislocation. Mild degenerative osteoarthrosis in the acromioclavicular and glenohumeral joints.
== END 2017-07-19 05:58 | disposition home or self-care (01) ==
LOC: ED 04:18
DX: L02.811 Cutaneous abscess of head [any part, except face] (principal); L03.811 Cellulitis of head [any part, except face]; F17.210 Nicotine dependence, cigarettes, uncomplicated